=== PATIENT | female | born 1965 | race Hispanic/Latino ===

== ENCOUNTER → 2022-03-31 10:13 | Outpatient (CLI) | payer OTHER, SELFPAY ==
[2022-03-31 11:44] LABS: COVID19 -Nasal RAPID Negative (Negative)
== END ==
PROVIDERS: PCP Preventive Medicine Occupational Medicine; Referring Provider Orthopaedic Surgery Orthopaedic Surgery of the Spine; Visit Provider Orthopaedic Surgery Orthopaedic Surgery of the Spine
DX: Z20.822 Contact with and (suspected) exposure to COVID-19 (principal)
CPT/HCPCS: 87635; C9803

== ENCOUNTER 2022-04-03 10:11 | Inpatient (IN) | payer OTHER, SELFPAY ==
[2022-03-28 07:39] VITALS: BMI 20.7
[2022-04-03] VITALS (14 sets, daily range): BP systolic 113–144; BP diastolic 60–78; PULSE 74–106; RESP 13–18; TEMP 36.2–37.1; O2SAT 95–100; BMI 20.7
[2022-04-03] MEDS: LACTATED RINGERS 1,000 ML 42 ML IV (11:18)
[2022-04-03] MEDS: ACETAMINOPHEN IV 1,000 MG/100 ML VIAL 400 MG IV (11:34)
--- NOTE | 2022-04-03 11:56 | PM.PREOP ---
Pre-operative Note COVID-19 COVID-19 status: Negative Result date/Date tested (Pos, Neg/Pending): 04/02/22 Criteria for continued procedure: Expected advancement of disease process, Possibility delay results in more complex future surgery or treatment, Increased loss of function, Continuing or worsening of significant or severe pain, Deterioration of the patient's condition or overall health and Delay expected to result in less-positive ultimate med/surg outcome Interval Note History & Physical reviewed/Exam performed by Physician: Yes Changes to H&P: No
[2022-04-03] MEDS: GABAPENTIN 300 MG CAPSULE PO (12:21)
--- NOTE | 2022-04-03 12:24 | SUR.PREOP ---
Order for Gabapentin from Dr Love as pt did not take her morning dose.
[2022-04-03] MEDS: CLINDAMYCIN 600 MG/50 ML PIGGYBACK 50 MG IV ×2 (12:42→20:48)
--- NOTE | 2022-04-03 13:21 | SUR.OPER ---
Supine, head on gel donut. Arms padded with gel pads, tucked at sides, towel roll under shoulders. Safety belt at thigh. Legs uncrossed. Pillow under knees, gel pad under heels.
[2022-04-03] MEDS: BUPIVACAINE 0.25% (PF) VIAL 10 ML INJ (13:30)
--- NOTE | 2022-04-03 15:14 | DI.RAD.S_ITS ---
PROCEDURE: XR CERVICAL SPINE 2V OR 3V INDICATIONS: C4-5, C5-6,C6-7 ACDF TECHNIQUE: Low resolution intraoperative fluoroscopic spot films were obtained COMPARISON: None. FINDINGS: Low resolution spot films show C4-5, C5-6 and C6-7 discectomy with disc spacers and anterior plate and screw hardware in good position IMPRESSION: Fluoroscopic guidance Approved by: Mirza Dubois M.D. on 04/03/2022 at 14:52
--- NOTE | 2022-04-03 15:22 | PM.OP.1 ---
Operative Date/Time/Diagnoses Date of procedure: 04/03/22 Time of procedure: 13:00 Pre-op diagnosis: 1. C4-5, C5-6, C6-7 spinal stenosis 2. C4-5, C5-6, C6-7 spondylosis with radiculopathy Post-op diagnosis: same Procedure & Clinicians Procedure: 1. C4-5 C5-6 C6-7 anterior cervical diskectomy and fusion 2. C4-5 C5-6 C6-7 anterior interbody cage placement 3. C4-5 C5-6 C6-7 anterior instrumentation with plate and screw placement in C4-C5-C6 and C7 vertebrae 4. Utilization of microsurgical technique and operating microscope Same procedure as scheduled: Yes Indications: Patient has been having chronic neck pain and worsening cervical radiculopathy with arm pain, weakness and numbness. Patient failed multiple conservative management with worsening pain weakness and numbness in her upper extremity. Patient has been having difficulty performing activity of daily living. After discussing risks benefits of treatment options, patient elected proceed with surgery. Surgeon: Juwan Bryson Advertising Executive: Dano Panda Click Yes if Unassisted: No Anesthesia Type: General Operative Notes Closure Type: primary Specimen(s): none sent Prosthetic devices, grafts, tissues, transplants, or devices: Globus Extend Plate, Titanium cages Applied: catheter Estimated Blood Loss (mL): 5 Blood products transfused: none Procedure in detail: Patient was seen in the preoperative area. Risks and benefits of the surgery was discussed with the patient. Operative consent was obtained and placed in the chart. Patient was then taken to the operative room. Prophylactic antibiotic was given less than 0.5 hr prior to skin incision. General anesthesia was administered. Patient was placed into a supine position on her radiolucent table. Bilateral shoulders were taped down to allow proper C-arm imaging. Anterior cervical area was prepped and draped in a sterile fashion. Time-out was performed at this time. Using lateral C-arm imaging, the level between C4 and C7 was identified and marked on patient's neck. A oblique incision from midline towards medial border of sternocleidomastoid muscle was made. The platysma muscle was incised in line with skin incision. Metzenbaum scissor was used to develop the plane between the medial border of sternocleidomastoid and the strap muscles medially. The carotid sheath and its contents were identified and protected behind the hand-held retractor during the entire case. The plane between the carotid sheath and strap muscles was developed with Metzenbaum scissors. Dissection was made down to the level of the anterior cervical fascia. Longus colli muscle was incised on the anterior aspect of vertebral bodies bilaterally from C4-C7. Spinal needle was placed into the C4-5 disc space and confirmed with lateral C-arm imaging. Self-retaining retractors were then placed protecting the carotid sheath the sheath laterally and the esophagus medially while exposing the surgical field between C4-C7 vertebrae. Using microsurgical technique and operative microscope, anterior cervical diskectomy was performed at C4-5 C5-6 and C6-7 level. This was done by removing the disc material, removing the anterior and posterior osteophytes posterior longitudinal ligaments along with performing bilateral foraminotomies at all 3 levels. Patient was found to have severe central and foraminal stenosis at all 3 levels. Patient's stenosis was fully decompressed after decompression was completed. After the diskectomy was completed, 3 anterior interbody cages were obtained. The cages were packed with globus DBM grafting material. One cage each along with the bone grafting material was then packed into the interbody spaces from C4-C7 with one cage into each interbody level. After the cages were placed, the anterior cervical plate was stabilized to the C4-C7 vertebrae using 2 screws at each each level. Total 8 screws were placed. After confirming placement of the hardware with AP and lateral C-arm imaging, the screws were locked into the plate using the locking mechanism and torque limiting screwdriver. After the hardware was placed and confirmed with AP and lateral C-arm imaging, the wound was irrigated with sterile normal saline. Hemostasis was accomplished using bipolar cautery. Carotid sheath contents and the esophagus was inspected and visualized and identified to be well protected throughout the entire case prior to closure. Platysma muscle and the subcutaneous tissue was closed with 2-0 Vicryl. The skin was closed with 4-0 Monocryl and Steri-Strips. Patient tolerated the procedure well. Patient was transferred recovery room in stable condition. There were no complications. Complications: none Post-operative Condition: stable Disposition: PACU Plan for aftercare: Admit to inpatient hospital
[2022-04-03] MEDS: hydrOXYzine 50 MG/ML INJ IM (15:52)
[2022-04-03] MEDS: LORazepam 2 MG/ML INJ (16:05)
[2022-04-03] MEDS: SODIUM CHLORIDE 0.9% 1,000 ML 100 ML IV (16:59)
[2022-04-03] MEDS: OXYCODONE IR 5 MG TABLET PO (21:58)
[2022-04-04] VITALS (7 sets, daily range): BP systolic 107–153; BP diastolic 58–82; PULSE 68–78; RESP 17–20; TEMP 36.2–36.6; O2SAT 96–100
[2022-04-04] MEDS: OXYCODONE IR 5 MG TABLET PO ×6 (02:15→22:34)
[2022-04-04] MEDS: SODIUM CHLORIDE 0.9% 1,000 ML 100 ML IV (02:19)
[2022-04-04] MEDS: ACETAMINOPHEN 325 MG TABLET 650 MG PO ×3 (04:45→22:34)
[2022-04-04] MEDS: CLINDAMYCIN 600 MG/50 ML PIGGYBACK 50 MG IV (05:02)
[2022-04-04] MEDS: DOCUSATE 100 MG CAPSULE PO ×2 (08:45→20:27)
[2022-04-04] MEDS: hydrOXYzine pamoate 25 MG CAPSULE PO ×2 (08:45→20:27)
[2022-04-04] MEDS: MAGNESIUM HYDROXIDE 30 ML UDC PO (08:45)
--- NOTE | 2022-04-04 09:00 | PM.PNPO.1 ---
Subjective Subjective Date Patient Seen: 04/04/22 Time Patient Seen: 09:00 Interval history: -the patient is complaining of moderate neck pain with difficulty swallowing. She is also complaining of left sided body decreased sensation and weakness. This was present prior to surgery. She had difficulty standing yesterday due to her left foot numbness and weakness. She has not worked with physical therapy or occupational therapy yet. Exam Vital Signs (past 8 hours): - 04/04/22 02:24 04/04/22 05:04 04/04/22 08:00 Temperature 97.4 F L 97.2 F L 97.2 F L Pulse Rate 68 68 77 Respiratory Rate 18 18 17 Blood Pressure 107/58 L 123/69 140/81 Pulse Oximetry 96 99 99 Oxygen Flow Rate 2 0 Oxygen Delivery Method Room Air Oxygen Flow Rate 0 Narrative Exam Narrative: -pleasant 56-year-old female, resting comfortably in her chair, no acute distress. Dressing is clean, dry, intact. Soft cervical neck brace is in place. 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 She has decreased sensation in left pinky, pointer, thumb fingers as compared to the right. Bilateral lower extremity: Strength is 3 +out of 5 with ankle plantar flex in, dorsiflexion, EHL as compared to the right. She has decreased sensation on medial and lateral ankle on the left as compared to the right. [facility] Medical History ADHD, hyperactive-impulsive type Anxiety Borderline diabetic Burning sensation Cirrhosis Concussion (~02/2022) Heart murmur Hepatitis C (~2007) Insomnia Kidney stones Myocardial infarction Spinal stenosis of cervical region Surgical History History of section History of elective History of surgery on lower extremity Hx of knee surgery Hx of left inguinal hernia repair Hx of lithotripsy Social History household members: family Smoking Status: Current every day smoker alcohol intake: current Assessment & Plan Post-op Postoperative Procedures: Procedures Operation Date: 04/03/22 12:45 Actual Procedure Side Surgeon p C4-5, C5-6, C6-7 ACDF w. anterior instrumentation Juwan Bryson MD Postoperative day: 1 Postoperative status narrative: -stable status post C4-5, C5-6, C6-7 ACDF -generalized left-sided body weakness and decreased sensation, present prior to surgery Postoperative plan narrative: -mobilize with PT/OT. Limit bending, lifting, twisting x6 weeks. Weightbearing as tolerated with front wheel walker. -may need to consider a left foot AFO if she is having difficulty walking, due to her generalized left-sided weakness -continue with multimodal pain management. We will hold Neurontin until after her morning physical therapy session due to the drowsiness it causes. -DC urinary catheter today -disposition: Likely home tomorrow Quality VTE Deep Vein Thrombosis/Pulmonary Embolism Present on Admission: No
--- NOTE | 2022-04-04 10:20 | PT.IIE ---
Current Diagnoses Other spondylosis with radiculopathy, cervical region (04/03/22) Spinal stenosis, cervical region (04/03/22) Surgery Performed Operation Date: 04/03/22 12:45 Actual Procedures p C4-5, C5-6, C6-7 ACDF w. anterior instrumentation - Juwan Bryson MD Surgical History (Last Reviewed 04/04/22 @ 09:03 by Wendy Knott PA-C) History of section History of elective History of surgery on lower extremity Hx of knee surgery Hx of left inguinal hernia repair Hx of lithotripsy Medical History (Last Reviewed 04/04/22 @ 09:03 by Wendy Knott PA-C) ADHD, hyperactive-impulsive type Anxiety Borderline diabetic Burning sensation Cirrhosis Concussion (~02/2022) Heart murmur Hepatitis C (~2007) Insomnia Kidney stones Myocardial infarction Spinal stenosis of cervical region Physical Therapy Inpatient Evaluation/Re-Eval M1 PT/OT-IP Prior Functional Status Start: 04/04/22 13:04 Freq: NEEDED Status: Active Protocol: Document 04/04/22 10:20 AB (Rec: 04/04/22 13:25 AB [email or web address]) Medical Review Prior Functional Status Medical History Reviewed Yes Communication able to make needs known Mobility and Gait pt stated that she is modified independent with all mobilities and ambulation using SPC Social History Household Members family Living Arrangements RV Number of Floors (Floors) One Floor Number of Stairs To Enter/Railing? pt plans to go to her sister's house upon d/c and sister will assist pt: home set up below pertains to sister's house 3 steps wide rails to enter Home Environment Standard Height Toilet,Tub/ Shower Home Equipment Straight Cane,Hand Held Shower Additional Social History Comment pt plans to stay at her sister 's house for ~ 10 days and go home where her son will help her as need. Son works aging department supervisor 11am to 5 pm M2 PT-IP Current Condition Start: 04/04/22 13:04 Freq: NEEDED Status: Active Protocol: Document 04/04/22 10:20 AB (Rec: 04/04/22 13:25 AB [email or web address]) Physical Therapy Current Condition Current Condition Evaluation Date 04/04/22 Treatment Diagnosis s/p C4-5, C5-6, C5-6 ACDF; difficulty in walking Onset Date 04/03/22 M3 PT-IP Subjective Start: 04/04/22 13:04 Freq: NEEDED Status: Active Protocol: Document 04/04/22 10:20 AB (Rec: 04/04/22 13:25 [email or web address]) Subjective Physical Therapy Visit Type Type Initial Evaluation Visit Start Time 10:20 Visit Stop Time 10:50 Total Visit Minutes 30 Number of DIRECTOR GEOPH[employer]ORATORY Visits 0 Physical Therapy Visit Comments Patient Comments agreeable to do PT Therapy Pain Assessment Pain When Pain Assessed At Rest Pain Present Pain Present Pain Reported Location Neck Intensity 4 Scale Used Numeric (0 - 10) Pain Management Techniques Distraction,Modification of Treatment,Re-positioning, Timing of Activity with Medications M4 PT-IP Mobility and Gait Start: 04/04/22 13:04 Freq: NEEDED Status: Active Protocol: Document 04/04/22 10:20 AB (Rec: 04/04/22 13:25 [email or web address]) PT-Bed Mobility Assessment Rolling Type of Rolling Log Rolling Level of Assist Minimal Assistance Supine to Sit Supine to Sit Minimal Assistance,Moderate Assistance Sit to Supine Sit to Supine Minimal Assistance PT-Transfer Assessment Sit to and From Stand Sit to and from Stand Moderate Assistance,Maximum Assistance,1 Person Assistance ,Use of Upper Extremities Equipment Transfer Assistive Device Gait Belt,Front Wheeled Walker Orthotic/Prosthetic Devices or Brace: Yes Transfers Transfer Destination Bed,Chair Transfer Technique Stand Step Pivot Transfer Ability Level of Assist Maximum Assistance,1 Person Assistance,Use of Upper Extremities Comments Mobility Comments pt sitting on chair. educated on cervical precautions, log roll and soft collar management. completed sit to stand mod to max A and cues. transferred to bed using FWW max A and max cues. able to ambulate ~ 2 ft to get to the bed. (+) L knee buckling and required max A for stability and cued for quads activation. completed log rolls sit to supine min A and max cues; supine to sit min to mod A and max cues. completed sit to stand mod A to max A and step transfer to chair max A using FWW. positioned pt on the chair. call light and table placed within reach. Gait Assessment Gait Gait Assistance Required: Maximum Assistance Distance (Feet) 2 Assistive Devices Assistive Device Gait Belt,Front Wheeled Walker Orthotic/Prosthetic Devices or Brace: No Gait Deviations General Gait Pattern Decreased Stride Length, Decreased Feet Clearance,Step- to Gait Factors Limiting Gait Function Factors Limiting Gait Function Decreased Activity Tolerance, Decreased Strength,Limited Range of Motion,Pain,Poor Balance,Poor Safety Awareness PT-Balance Assessment Sitting Balance and Reactions Static Sitting Balance Ability Good Dynamic Sitting Balance Ability Good Standing Balance and Reactions Static Standing Balance Ability Poor Dynamic Standing Balance Ability Poor Device Used FWW M5 PT-IP Objective Assessments Start: 04/04/22 13:04 Freq: NEEDED Status: Active Protocol: Document 04/04/22 10:20 AB (Rec: 04/04/22 13:25 AB [email or web address]) Orientation Orientation/Cognition Level of Alertness Alert Orientation Name,Place,Situation Language Function Ability No Deficits Noted Safety Awareness Decreased Safety Awareness Memory Description No Deficits Noted Gross Range of Motion Lower Extremity ROM Assessment Within Functional Limits Strength Lower Extremity Strength Assessment Left Impaired Hip 3+/5 Knee 3+/5 Ankle 2-/5 Sensation Assessment Sensation Gross Sensation Left UE Impaired,Left LE Impaired Sensation Description Numbness Comments Sensation Comments pt stated that she can only feel ~ 30 % on L side Muscle Tone Muscle Tone WNL Yes M6 PT-IP Treatment Start: 04/04/22 13:04 Freq: NEEDED Status: Active Protocol: Document 04/04/22 10:20 AB (Rec: 04/04/22 13:25 AB [email or web address]) Physical Therapy Treatment Education Education Provided Precautions,Weight Bearing Status,Post-Op Packet,Safety M7 PT-IP Assessment and Plan Start: 04/04/22 13:04 Freq: NEEDED Status: Active Protocol: Document 04/04/22 10:20 AB (Rec: 04/04/22 13:[facility] PT Summary Assessment and Plan Potential Rehabilitation Potential Fair Status of Condition at Evaluation Evolving Summary Impairments Pain,ROM,Strength,Balance, Coordination,Sensation,Tone, Cognition,Bed Mobility, Transfers,Gait,Activity Tolerance Assessment Summary pt requiring mod to max A with mobility using FWW. Presents with L knee buckling with transfers using FWW. d/c plan depending on progress but at this time, pt will require SNF rehab. Goals Bed Mobility Goal Standby Assistance Transfer Goal Minimal Assistance,Front Wheeled Walker Gait Goal Minimal Assistance,Front Wheel Walker Gait Distance 50 Other Goals improve bed mobility, transfers, ambulation ~ 150 ft using FWW mod I up/down 3 steps 1 rail SBA Days to Meet Goals 10 Frequency of Treatment Frequency Of Treatment Twice a Day Treatment Plan Physical Therapy Treatment Plan Bed Mobility Training,Transfer Training,Gait Training, Therapeutic Exercise,Balance Retraining,Post Op Education, Discharge Planning,Hot or Cold Pack,Neuromuscular Re-ed, Coordination Retraining,Manual Therapy Precautions Cervical Spine Precautions Soft Collar for Comfort,No Heavy Lifting,Log Roll Recommendations To Nursing Amount of Assist Needed 1 Person Assist Discharge Recommendations PT Discharge Recommendations SNF Rehab Equipment Needed for Home Before FWW Discharge Transportation Needs at Discharge Private Vehicle,Wheelchair/ Cabulance
[2022-04-04] MEDS: GABAPENTIN 300 MG CAPSULE PO ×3 (10:55→20:28)
[2022-04-04 12:59] LABS: Hematocrit 35.9 % (36-46); Hemoglobin 12.3 g/dL (12.0-16.0)
--- NOTE | 2022-04-04 13:48 | PT.IPTN ---
Current Diagnoses Other spondylosis with radiculopathy, cervical region (04/03/22) Spinal stenosis, cervical region (04/03/22) Surgery Performed Operation Date: 04/03/22 12:45 Actual Procedures p C4-5, C5-6, C6-7 ACDF w. anterior instrumentation - Juwan Bryson MD Physical Therapy Treatment Note M2 PT-IP Current Condition Start: 04/04/22 13:04 Freq: NEEDED Status: Active Protocol: Document 04/04/22 10:20 AB (Rec: 04/04/22 13:25 AB [email or web address]) Physical Therapy Current Condition Current Condition Evaluation Date 04/04/22 Treatment Diagnosis s/p C4-5, C5-6, C5-6 ACDF; difficulty in walking Onset Date 04/03/22 M3 PT-IP Subjective Start: 04/04/22 13:04 Freq: NEEDED Status: Active Protocol: Document 04/04/22 13:28 KS (Rec: 04/04/22 14:49 KS [id number]) Subjective Physical Therapy Visit Type Type Treatment Note Visit Start Time 13:28 Visit Stop Time 13:48 Total Visit Minutes 20 Notes daughter present Number of CERTIFIED PHLEBOTOMIST Visits 1 Physical Therapy Visit Comments Patient Comments agreeable to do PT M4 PT-IP Mobility and Gait Start: 04/04/22 13:04 Freq: NEEDED Status: Active Protocol: Document 04/04/22 13:28 KS (Rec: 04/04/22 14:49 KS [id number]) PT-Bed Mobility Assessment Rolling Type of Rolling Log Rolling Level of Assist Contact Guard Assistance Supine to Sit Supine to Sit Contact Guard Assistance,1 Person Assistance Sit to Supine Sit to Supine Contact Guard Assistance PT-Transfer Assessment Sit to and From Stand Sit to and from Stand Minimal Assistance,1 Person Assistance,Use of Upper Extremities Equipment Transfer Assistive Device Gait Belt,Front Wheeled Walker Orthotic/Prosthetic Devices or Brace: Yes Transfers Transfer Destination Bed Transfer Technique Pt ambulated Transfer Ability Level of Assist Minimal Assistance,1 Person Assistance,Use of Upper Extremities Comments Mobility Comments Pt in bed upon arrival and reported some relief but also fatigue following oxy. CGA for logroll and sidelying<>sit, Min A and cues for sit<>stand w/ FWW. Pt continues to have LLE weakness w/ some buckling requiring cues for quad activation. Pt ambulated ~5 ft forward and back w/ FWW and c /o weakness in LE. She returned to bed CGA. Daughter arrived, discussed at home assistance and safety as well as DME and SNF. Gait Assessment Gait Gait Assistance Required: Minimum Assistance,1 Person Assist Distance (Feet) 10 Assistive Devices Assistive Device Gait Belt,Front Wheeled Walker Orthotic/Prosthetic Devices or Brace: No Gait Deviations General Gait Pattern Decreased Stride Length, Decreased Feet Clearance Factors Limiting Gait Function Factors Limiting Gait Function Decreased Activity Tolerance, Decreased Strength,Limited Range of Motion,Pain,Poor Balance,Poor Safety Awareness Comments Gait Comments Pt only able to tolerate 5 ft forward and back w/ FWW Min A due to weakness and LLE buckling. Stair Climbing Assessment Comments Stair Climbing Comments Did not assess, pt will need to complete 3 stairs prior to d/c if going home. PT-Balance Assessment Sitting Balance and Reactions Static Sitting Balance Ability Good Dynamic Sitting Balance Ability Good Standing Balance and Reactions Static Standing Balance Ability Fair Dynamic Standing Balance Ability Poor Device Used FWW M5 PT-IP Objective Assessments Start: 04/04/22 13:04 Freq: NEEDED Status: Active Protocol: Document 04/04/22 10:20 AB (Rec: 04/04/22 13:25 AB [id number]) Orientation Orientation/Cognition Level of Alertness Alert Orientation Name,Place,Situation Language Function Ability No Deficits Noted Safety Awareness Decreased Safety Awareness Memory Description No Deficits Noted Gross Range of Motion Lower Extremity ROM Assessment Within Functional Limits Strength Lower Extremity Strength Assessment Left Impaired Hip 3+/5 Knee 3+/5 Ankle 2-/5 Sensation Assessment Sensation Gross Sensation Left UE Impaired,Left LE Impaired Sensation Description Numbness Comments Sensation Comments pt stated that she can only feel ~ 30 % on L side Muscle Tone Muscle Tone WNL Yes M6 PT-IP Treatment Start: 04/04/22 13:04 Freq: NEEDED Status: Active Protocol: Document 04/04/22 13:28 KS (Rec: 04/04/22 14:49 KS [id number]) Physical Therapy Treatment Exercises Exercises Ankle Pumps Education Education Provided Precautions,Weight Bearing Status,Post-Op Packet,Safety M7 PT-IP Assessment and Plan Start: 04/04/22 13:04 Freq: NEEDED Status: Active Protocol: Document 04/04/22 13:28 KS (Rec: 04/04/22 14:49 KS [id number]) PT Summary Assessment and Plan Potential Rehabilitation Potential Fair Summary Impairments Pain,ROM,Strength,Balance, Coordination,Sensation,Tone, Cognition,Bed Mobility, Transfers,Gait,Activity Tolerance Progress Towards Goals Slow Progress due to Pain,Slow Progress due to Activity Tolerance Assessment Summary Pt showed improved bed mobility and sit<>Stand, requiring CGA to Min A, however continues to have LLE buckling and weakness and could only tolerate 10 ft ambulation w/ FWW. Scheduled caregiver training w/ pts daughter for 04/05 at 10:30. Pt will need to improve ambulation, balance, and complete stair training prior to d/c if going home. Goals Bed Mobility Goal Standby Assistance Transfer Goal Minimal Assistance,Front Wheeled Walker Gait Goal Minimal Assistance,Front Wheel Walker Gait Distance 50 Other Goals improve bed mobility, transfers, ambulation ~ 150 ft using FWW mod I up/down 3 steps 1 rail SBA Days to Meet Goals 10 Frequency of Treatment Frequency Of Treatment Twice a Day Treatment Plan Physical Therapy Treatment Plan Bed Mobility Training,Transfer Training,Gait Training, Therapeutic Exercise,Balance Retraining,Post Op Education, Discharge Planning,Hot or Cold Pack,Neuromuscular Re-ed, Coordination Retraining,Manual Therapy Precautions Cervical Spine Precautions Soft Collar for Comfort,No Heavy Lifting,Log Roll Recommendations To Nursing Amount of Assist Needed 1 Person Assist Discharge Recommendations PT Discharge Recommendations Home with 29/01 Assist Available,Home Health,SNF Rehab Equipment Needed for Home Before FWW Discharge Transportation Needs at Discharge Private Vehicle,Wheelchair/ Cabulance
--- NOTE | 2022-04-04 14:41 | CM.DANOTE ---
Initial DCP Assessment Note Pt is a 56 yo female, resident of [place], now POD#[address] fusion [address] Dr Bryson PCP: Aramis Donaldson Payer: L+I Reviewed chart, pt discussed in multidisciplinary rounds this morning. Therapy currently recommending SNF based on initial PT eval d/t patient's legs buckling with movement Patient hopeful to return home w/her sister to [place], dtr mark can transport but will not be able to care for patient, sister available at least for the first week of recovery Met w/patient to introduce self and role, patient waiting for PT at time of this visit Needs f/u. Expect patient will DC back home w/family and HH, as patient has L+I coverage. If patient does not improve functionally, CM team will need to be in close contact w/patient's L+I embedded case manager ADINA Perez Discharge Planning/Care Management Advanced directive, confirm from FAMILY Start: 04/03/22 16:57 Freq: Q24H Status: Active Protocol: Document 04/03/22 16:57 (Rec: 04/03/22 22:17 [id number]) Advance Directive, confirm on record Time 22:16 Person contacted patient Copy received No CM Discharge Assessment Start: 04/04/22 14:39 Freq: Status: Active Protocol: Document 04/04/22 14:39 LAINE (Rec: 04/04/22 14:41 [id number]) Discharge Planning Assessment Assigned Nurse Executive ADINA Donis DPOA/Assigned Designee Name Mercedes Oliveira (daughter) Yesenia (sister) Contact Information [phone] Advance Directives? Yes Advance Directives on File No History Provided By Patient,Family Member,Medical Record Prior Living Arrangements RV Household Members family Type of transporation used prior to Relies on Others admit Independent with ADL's Yes Is patient alert and oriented? Yes Patient/Family Preference Nursing Home Facility,Home with Home Health Barriers to Discharge Yes Comment PT currently rec SNF based on initial PT eval; patient hopeful to return home. Patient has L+I coverage so need to discuss plan with patient and w/ L+I CM to discuss DC options and benefits Discharge Plan Home with Home Health Transportation Arrangement Family if return home vs cabulance if SNF Additional Comment Needs f/u
[2022-04-04] MEDS: SENNOSIDES 8.6 MG TABLET 17.2 MG PO (20:27)
[2022-04-05 03:00] VITALS: BP 133/79; PULSE 72; RESP 20; TEMP 36.2; O2SAT 98
[2022-04-05] MEDS: OXYCODONE IR 5 MG TABLET PO ×3 (05:33→11:21)
[2022-04-05] MEDS: hydrOXYzine pamoate 25 MG CAPSULE PO ×2 (05:33→09:47)
--- NOTE | 2022-04-05 07:23 | PM.DS.1 ---
History of Present Illness History of Present Illness Date Patient Seen: 04/05/22 Time Patient Seen: 07:23 Chief complaint: Moderate neck pain Narrative: Patient states her neck pain is moderate. Denies fever or chills. No nausea or vomiting. She states she has no shortness of breath or chest pain. Discharge Providers Provider Date of admission: 04/03/22 10:11 Discharge Date: 04/05/22 Primary care physician: Aramis Donaldson MD Consults: 04/03/22 16:38 Consult to Occupational Therapy Evaluate & Treat Comment: Physician Instructions: Evaluate and treat Consult to Physical Therapy Evaluate & Treat Comment: Physician Instructions: Evaluate and Treat Discharge provider: Dano Panda PA-C Summary Hospital Course Discharge Diagnosis: 1. C4-5, C5-6, C6-7 spinal stenosis 2. C4-5, C5-6, C6-7 spondylosis with radiculopathy Hospital Course: 1.? C4-5 C5-6 C6-7 anterior cervical diskectomy and fusion 2.? C4-5 C5-6 C6-7 anterior interbody cage placement 3.? C4-5 C5-6 C6-7 anterior instrumentation with plate and screw placement in C4-C5-C6 and C7 vertebrae 4.? Utilization of microsurgical technique and operating microscope Same procedure as scheduled: Yes Indications: Patient has been having chronic neck pain and worsening cervical radiculopathy with arm pain, weakness and numbness. Patient failed multiple conservative management with worsening pain weakness and numbness in her upper extremity.? Patient has been having difficulty performing activity of daily living.? After discussing risks benefits of treatment options, patient elected proceed with surgery. Surgeon: Juwan Bryson Split Leather Department Supervisor: Dnao Panda Click Yes if Unassisted: No Anesthesia Type: General Operative Notes Closure Type: primary Specimen(s): none sent Prosthetic devices, grafts, tissues, transplants, or devices: Globus Extend Plate, Titanium cages Applied: catheter Estimated Blood Loss (mL): 5 Blood products transfused: none Patient admitted to the hospital for the above-mentioned procedure. Patient consented to the same. Patient underwent cervical fusion on April 03, 2022. Patient has been progressing as expected and will be discharged home today in stable condition. Multimodal pain management, limit bending, lifting, twisting. Soft collar for comfort. Status at Discharge Cognitive/behavioral status at discharge: at baseline, oriented Functional status at discharge: uses cane/walker Overall status at discharge: patient is progressing back to baseline Exam Vital Signs (past 8 hours): - 04/05/22 03:00 Temperature 97.2 F L Pulse Rate 72 Respiratory Rate 20 Blood Pressure 133/79 Pulse Oximetry 98 Oxygen Flow Rate 0 Oxygen Delivery Method Room Air Oxygen Flow Rate 0 Narrative Exam Narrative: 56-year-old female resting comfortably in bed in no apparent distress. Dressing is clean, dry and intact. Motor functions intact bilateral upper extremities. Const General: cooperative and comfortable Nutritional Appearance: average body habitus Resp Effort & Inspection: normal respiratory effort and able to speak in complete sentences Objective Labs Result Diagrams: 04/04/22 12:50 Labs: Laboratory Results - last 24 hr 04/04/22 12:50 Hgb 12.3 Hct 35.9 L PFSH Medical History ADHD, hyperactive-impulsive type Anxiety Borderline diabetic Burning sensation Cirrhosis Concussion (~02/2022) Heart murmur Hepatitis C (~2007) Insomnia Kidney stones Myocardial infarction Spinal stenosis of cervical region Surgical History History of section History of elective History of surgery on lower extremity Hx of knee surgery Hx of left inguinal hernia repair Hx of lithotripsy Social History household members: family Smoking Status: Current every day smoker alcohol intake: current Discharge Assessment & Plan Assessment and Plan Assessment: Patient progressing as expected status post C4-C5, C5-C6, C6-C7 anterior cervical diskectomy and fusion Plan of Treatment: Multimodal pain management Limit bending, twisting, lifting Soft collar for comfort Follow-up in 2 weeks with [facility] Discharge home today after physical therapy. Discharge Plan Discharge Plan Patient Disposition: Home Provider Discharge Comment: Discharge home today after physical therapy Discharge orders & Medications Prescriptions: New acetaminophen 325 mg Tablet 650 mg PO Q6HR PRN (Reason: Pain, Mild (1-3)) Qty: 60 0RF docusate sodium 100 mg Capsule 100 mg PO BID Qty: 20 0RF oxycodone 5 mg Tablet 5 mg PO Q3HR PRN (Reason: Pain, Moderate (4-6)) Qty: 60 0RF hydroxyzine pamoate 25 mg Capsule 25 mg PO Q4HR PRN (Reason: Nausea And Vomiting) Qty: 40 0RF Continued gabapentin 300 mg Capsule 300 mg PO TID Follow up/Referrals: Juwan Bryson MD [Physician] - (Two weeks) Aramis Donaldson MD [Primary Care Provider] - Diet/Activity/Treatments Diet: Diet as Tolerated Activity: Limit bending, twisting, lifting Other treatments: Soft collar for comfort Skin/Wound/Dressing Care Dressing: Keep dressing clean and dry Visit Report/Discharge Packet Instructions: DI for Prescription Opioid Use, DI for Anterior Cervical Discectomy and Fusion Stand Alone Forms: Surgery Discharge Discharge Data Primary Care Provider: Aramis Donaldson Quality VTE Deep Vein Thrombosis/Pulmonary Embolism Present on Admission: No
[2022-04-05] MEDS: DOCUSATE 100 MG CAPSULE PO (08:37)
[2022-04-05] MEDS: GABAPENTIN 300 MG CAPSULE PO (08:37)
[2022-04-05] MEDS: HYDROMORPHONE 0.5 MG INJ IV (08:44)
--- NOTE | 2022-04-05 09:48 | OT.IP.EVAL ---
Current Diagnoses Other spondylosis with radiculopathy, cervical region (04/03/22) Spinal stenosis, cervical region (04/03/22) Surgery Performed Operation Date: 04/03/22 12:45 Actual Procedures p C4-5, C5-6, C6-7 ACDF w. anterior instrumentation - Juwan Bryson MD Past Medical History (Last Reviewed 04/05/22 @ 07:25 by Dano Panda PA-C) ADHD, hyperactive-impulsive type Anxiety Borderline diabetic Burning sensation Cirrhosis Concussion (~02/2022) Heart murmur Hepatitis C (~2007) Insomnia Kidney stones Myocardial infarction Spinal stenosis of cervical region Surgical History (Last Reviewed 04/05/22 @ 07:25 by Dano Panda PA-C) History of section History of elective History of surgery on lower extremity Hx of knee surgery Hx of left inguinal hernia repair Hx of lithotripsy Occupational Therapy Inpatient Evaluation/Re-Eval M1 PT/OT-IP Prior Functional Status Start: 04/04/22 13:04 Freq: NEEDED Status: Active Protocol: Document 04/05/22 09:03 [facility] (Rec: 04/05/22 09:48 [facility] [id number]) Medical Review Prior Functional Status Medical History Reviewed Yes Communication able to make needs known Mobility and Gait pt stated that she is modified independent with all mobilities and ambulation using SPC Activities of Daily Living and IADL's Pt states was needing assist for IADl needs prior to surgery due to her pain. Social History Household Members family Living Arrangements House Number of Floors (Floors) One Floor Number of Stairs To Enter/Railing? pt plans to go to her sister's house upon d/c and sister will assist pt: home set up below pertains to sister's house 3 steps wide rails to enter Home Environment Standard Height Toilet,Tub/ Shower Home Equipment Front Wheel Walker,Straight Cane,Shower Seat with Backrest ,Hand Held Shower,Grab Bars Near Toilet,Grab Bars In Shower Additional Social History Comment pt plans to stay at her sister 's house for ~ 10 days and go home where her son will help her as need. Son works department of natural resources officer 11am to 5 pm Pt states can possibly use her sister's FWW, but then thinking she will probably need her own. Information given for providers for DME to the pt. M2 OT-IP Current Condition Start: 04/05/22 09:33 Freq: Status: Active Protocol: Document 04/05/22 09:03 [facility] (Rec: 04/05/22 09:48 [facility] [id number]) Occupational Therapy Current Condition Current Condition Evaluation Date 04/05/22 Treatment Diagnosis S/p C4-5, C5-6, C6-7 ACDF Diagnosis Onset Date 04/03/22 Post Operative Precautions Cervical Spine Precautions Soft Collar for Comfort,No Heavy Lifting,Log Roll M3 OT- IP Subjective and Pain Start: 04/05/22 09:33 Freq: Status: Active Protocol: Document 04/05/22 09:03 [facility] (Rec: 04/05/22 09:48 [facility] [id number]) OT- Subjective Occupational Therapy Visit Type Type Initial Evaluation Visit Start Time 09:03 Visit Stop Time 09:32 Total Visit Minutes 29 Occupational Therapy Visit Comments Patient Comments Pt agreed to do OT eval but not wanting to shower and preferring to sponge off instead. Notified pt's nurse of request to have something for constipation. Patient/Caregiver Goals To go home. OT Pain Assessment Pain When Pain Assessed At Rest Pain Present Pain Present Pain Reported Location Neck Intensity 8 M4 OT- IP ADL's Start: 04/05/22 09:33 Freq: Status: Active Protocol: Document 04/05/22 09:03 [facility] (Rec: 04/05/22 09:48 [facility] [id number]) OT [id number] Comments OT Self-Feeding Comments Per pt's report having no issues beside the large pills. Educated of eating/swallowing suggestions after ACDF- have pills with applesauce/pudding, eat upright , have softer foods, etc... OT ADL-Grooming General Evaluation Grooming Ability Standby Assistance Areas Needing Assistance Retrieving/Set-up of Grooming Items OT ADL-Oral Care General Eval Oral Care Ability Independent OT ADL-Dressing General Eval Upper Body Dressing Ability Independent Lower Body Dressing Ability Contact Guard Assistance Areas Needing Assistance Underpants/Brief,Socks Comments OT Dressing Comments CGA for balance while pt standing to do brief management needs. OT ADL-Toileting Comments OT Toileting Comments Pt not having to go. Suggested to have assist at home and possibly to wear pads/brief as needed so not having to hurry to the bathroom. OT ADL-Bathing Bathing Type Bathing Type Sponge Bath General Evaluation Bathing Ability Contact Guard Assistance Comments OT Bathing Comments CGA for standing whilw doing pericare needs. M5 OT- IP IADL's Start: 04/05/22 09:33 Freq: Status: Active Protocol: Document 04/05/22 09:03 [facility] (Rec: 04/05/22 09:48 [facility] [id number]) OT-Instrumental Activities of Daily Living Deficits IADL Deficits Identified Deficits Home Safety Awareness Awareness of Need for Assistance at Home Good Awareness Ability to Problem Solve Emergency Able to Problem Solve Situations Medication Management Medication Management Comments Pt's sister to be able to assist as needed. Money Management Money Management Comments Pt's sister to be able to assist as needed. Meal Preparation Meal Preparation Caregiver Provides Assist Director Client Director Client Caregiver Provides Assist Driving Driving Comments Pt aware will not to drive for now. M6 OT- IP Functional Cognition Start: 04/05/22 09:33 Freq: Status: Active Protocol: Document 04/05/22 09:03 [facility] (Rec: 04/05/22 09:48 [facility] [id number]) Cognitive Factors Limiting Selfcare Function Cognitive Ability Level of Alertness Alert Patient Orientation Name,Age,Birthday,Month,Date, Year,Day of Week,Place, Situation Attention Span Ability Capable of Focused Attention, Capable of Sustained Attention Ability to Follow Commands Able to Follow One Step Commands Memory Description No Deficits Noted Safety Awareness Underestimates Need for Assistance Cognitive Comments Cognitive Assessment Comments Pt needing cue to slow down and take her time but able to follow directions for ADl and mobility needs. Pt needing initial safety cue to push up from the armrest from the recliner when coming to stand. OT- Vision and Hearing OT- Hearing Assessment OT- Hearing Assessment WFL OT- Vision Assessment Visual Acuity Glasses For Reading Occular Pursuits WF M7 OT- IP Mobility and Balance Start: 04/05/22 09:33 Freq: Status: Active Protocol: Document 04/05/22 09:03 [facility] (Rec: 04/05/22 09:48 [facility] [id number]) OT-Transfer Assessment Sit to and From Stand Sit to and from Stand Standby Assistance,Contact Guard Assistance Transfers Transfer Ability Standby Assistance Technique Transfer Destination Chair Transfer Technique Stand Step Pivot Devices Transfer Assistive Devices Gait Belt,Front Wheeled Walker Comments Mobility Comments CGA to close SBA to stand OT- Balance Assessment Sitting Balance and Reactions Static Sitting Balance Ability Normal Dynamic Sitting Balance Ability Good Standing Balance and Reactions Static Standing Balance Ability Fair Dynamic Standing Balance Ability Poor Comments Other Balance Tests/Deviations/Treatment Pt LLE tends to buckle and : needing cues to tighten her quads and be mindful of her LLE weakness this time. M8 OT- IP Objective Assessments Start: 04/05/22 09:33 Freq: Status: Active Protocol: Document 04/05/22 09:03 [facility] (Rec: 04/05/22 09:48 [facility] [id number]) OT-Muscle Tone Assessment Muscle Tone WNL Yes M9 OT- IP Assessment and Plan Start: 04/05/22 09:33 Freq: Status: Active Protocol: Document 04/05/22 09:03 [facility] (Rec: 04/05/22 09:48 [facility] [id number]) OT Summary Assessment and Plan Potential Rehabilitation Potential Good Analytic Complexity at Evaluation Low Summary OT Impairments Pain,Strength,Balance, Functional Mobility,Grooming, Dressing,Toileting,Bathing, Toilet Transfers,Shower Transfers,Activity Tolerance Progress Towards Goals Progressing Toward Goals Assessment Summary Pt low complexity and main barriers are pain, LLE buckling when walking, and will need one person assist for ADl and mobility needs at home. Pt's daughter to come later for caregiver training and pt to go home with her sister's when medically stable . Pt would benefit from home health. Goals Grooming Goal Independent Dressing Goal Independent Toileting Goal Independent Bathing Goal Standby Assistance Toilet Transfer Goal Independent Shower Transfer Goal Independent Patient/Caregiver Education Goal Caregiver Independent Assisting Patient Days to Meet Goals 7 Frequency of Treatment Frequency Of Treatment Once a Day Treatment Plan OT Treatment Plan ADL Training,Functional Mobility,Patient/Family Education,Discharge Planning Other Treatment Recommendations and Next shower if still here Treatment Focus Discharge Recommendations OT Discharge Recommendations Home with Assistance Home Equipment Needs FWW Transportation Needs at Discharge Private Vehicle
[2022-04-05] MEDS: ACETAMINOPHEN 325 MG TABLET 650 MG PO (10:48)
--- NOTE | 2022-04-05 10:55 | PT.IPTN ---
Current Diagnoses Other spondylosis with radiculopathy, cervical region (04/03/22) Spinal stenosis, cervical region (04/03/22) Surgery Performed Operation Date: 04/03/22 12:45 Actual Procedures p C4-5, C5-6, C6-7 ACDF w. anterior instrumentation - Juwan Bryson MD Physical Therapy Treatment Note M2 PT-IP Current Condition Start: 04/04/22 13:04 Freq: NEEDED Status: Discharge Protocol: Document 04/04/22 10:20 AB (Rec: 04/04/22 13:25 AB [id number]) Physical Therapy Current Condition Current Condition Evaluation Date 04/04/22 Treatment Diagnosis s/p C4-5, C5-6, C5-6 ACDF; difficulty in walking Onset Date 04/03/22 M3 PT-IP Subjective Start: 04/04/22 13:04 Freq: NEEDED Status: Discharge Protocol: Document 04/05/22 10:30 [place] (Rec: 04/05/22 12:22 [place] [id number]) Subjective Physical Therapy Visit Type Type Treatment Note Visit Start Time 10:30 Visit Stop Time 10:55 Total Visit Minutes 25 Notes daughter present for caregiver training Number of LIBRARY SUPERVISOR Visits 2 Physical Therapy Visit Comments Patient Comments agreeable to do PT Therapy Pain Assessment Pain When Pain Assessed At Rest Pain Present Pain Present Pain Reported Location Neck Description Burning Pain Behaviors Guarding,Restlessness Pain Management Techniques Apply Cold,Distraction,Re- positioning,Timing of Activity with Medications M4 PT-IP Mobility and Gait Start: 04/04/22 13:04 Freq: NEEDED Status: Discharge Protocol: Document 04/05/22 10:30 [place] (Rec: 04/05/22 12:22 [place] [id number]) PT-Transfer Assessment Sit to and From Stand Sit to and from Stand Standby Assistance,1 Person Assistance,Use of Upper Extremities Equipment Transfer Assistive Device Gait Belt,Front Wheeled Walker Orthotic/Prosthetic Devices or Brace: Yes Transfers Transfer Destination Chair,Wheelchair Transfer Technique Pt ambulated w/ FWW Transfer Ability Level of Assist Standby Assistance,1 Person Assistance,Use of Upper Extremities Comments Mobility Comments Pt in chair upon arrival and daughter in room. States she got out of bed unassisted and completed logroll. Demonstrated gait belt application to pts daughter. Pt sit<>stand SBA w/ FWW and ambulated ~60 ft CGA before taking seated rest break in w/ c for remaining distance to practice stairs. Pt continues to have leg weakness and numbness, but no LOB or buckling today. Pts daughter assisted pt w/ ascending/ descending 3 stairs w/ BHR and step over step pattern. W/c back to room due to fatigue. Discussed at home safety, FWW use w/ pt and her daughter who both feel safe to return home . Dispensed FWW for home use. Gait Assessment Gait Gait Assistance Required: Contact Guard Assist,1 Person Assist Distance (Feet) 60 Assistive Devices Assistive Device Gait Belt,Front Wheeled Walker Orthotic/Prosthetic Devices or Brace: No Gait Deviations General Gait Pattern Decreased Stride Length, Decreased Feet Clearance Factors Limiting Gait Function Factors Limiting Gait Function Decreased Activity Tolerance, Decreased Strength,Limited Range of Motion,Pain,Poor Balance,Poor Safety Awareness Comments Gait Comments Pt increased ambulation distance, still somewhat unsteady due to leg weakness and numbness. Daughter able to provide CGA, pt agrees to use FWW at home and confirms sister will be home with her. Stair Climbing Assessment Evaluation Level of Assist On Stairs Contact Guard Assistance,1 Person Assistance Devices Stair Climbing Assistive Devices Left Railing,Right Railing Technique/Endurance Stair Climbing Direction Ascend and Descend Stair Climbing Technique Step Over Step Number of Steps Climbed 3 Stair Climbing Set # Repetitions (reps) 1 Comments Stair Climbing Comments Pt ascended/descended 3 steps w/ BHR step over step w/ daughter providing CGA. Pt fatigued following, but feels she can complete upon return home. Pts daughter confirms she can place a chair inside the door for pt to take seated rest break if needed. PT-Balance Assessment Sitting Balance and Reactions Static Sitting Balance Ability Good Dynamic Sitting Balance Ability Good Standing Balance and Reactions Static Standing Balance Ability Fair Dynamic Standing Balance Ability Fair Device Used FWW M5 PT-IP Objective Assessments Start: 04/04/22 13:04 Freq: NEEDED Status: Discharge Protocol: Document 04/04/22 10:20 AB (Rec: 04/04/22 13:25 AB [id number]) Orientation Orientation/Cognition Level of Alertness Alert Orientation Name,Place,Situation Language Function Ability No Deficits Noted Safety Awareness Decreased Safety Awareness Memory Description No Deficits Noted Gross Range of Motion Lower Extremity ROM Assessment Within Functional Limits Strength Lower Extremity Strength Assessment Left Impaired Hip 3+/5 Knee 3+/5 Ankle 2-/5 Sensation Assessment Sensation Gross Sensation Left UE Impaired,Left LE Impaired Sensation Description Numbness Comments Sensation Comments pt stated that she can only feel ~ 30 % on L side Muscle Tone Muscle Tone WNL Yes M6 PT-IP Treatment Start: 04/04/22 13:04 Freq: NEEDED Status: Discharge Protocol: Document 04/05/22 10:30 [place] (Rec: 04/05/22 12:22 [place] [id number]) Physical Therapy Treatment Exercises Exercises Ankle Pumps Education Education Provided Precautions,Weight Bearing Status,Post-Op Packet,Safety M7 PT-IP Assessment and Plan Start: 04/04/22 13:04 Freq: NEEDED Status: Discharge Protocol: Document 04/05/22 10:30 [place] (Rec: 04/05/22 12:22 [place] [id number]) PT Summary Assessment and Plan Potential Rehabilitation Potential Good Summary Impairments Pain,ROM,Strength,Balance, Coordination,Sensation,Tone, Cognition,Bed Mobility, Transfers,Gait,Activity Tolerance Progress Towards Goals Slow Progress due to Pain,Slow Progress due to Activity Tolerance Assessment Summary Pt SBA to CGA for mobility, CGA for ambulation and stairs today. Completed caregiver training w/ pts daughter who was able to provide all necessary assist. Pt ambulated 60 ft and ascended/descended 3 steps w/ BHR. Pt an daughter feel safe to return home. Pt confirms her sister will be home with her to assist as needed. Pt agrees to use FWW dispensed for safety and energy conservation due to BLE weakness and numbness. Goals Bed Mobility Goal Standby Assistance Transfer Goal Minimal Assistance,Front Wheeled Walker Gait Goal Minimal Assistance,Front Wheel Walker Gait Distance 50 Other Goals improve bed mobility, transfers, ambulation ~ 150 ft using FWW mod I up/down 3 steps 1 rail SBA Days to Meet Goals 10 Frequency of Treatment Frequency Of Treatment Twice a Day Treatment Plan Physical Therapy Treatment Plan Bed Mobility Training,Transfer Training,Gait Training, Therapeutic Exercise,Balance Retraining,Post Op Education, Discharge Planning,Hot or Cold Pack,Neuromuscular Re-ed, Coordination Retraining,Manual Therapy Precautions Cervical Spine Precautions Soft Collar for Comfort,No Heavy Lifting,Log Roll Recommendations To Nursing Amount of Assist Needed 1 Person Assist Discharge Recommendations PT Discharge Recommendations Home with 29/01 Assist Available,Home Health,SNF Rehab Equipment Needed for Home Before FWW Discharge Transportation Needs at Discharge Private Vehicle
[2022-04-05 11:00] VITALS: BP 126/73; PULSE 78; RESP 14; TEMP 36.3; O2SAT 98
--- NOTE | 2022-04-05 11:53 | PC.NURSE ---
Pt is A&OX3. She reports pain increased to neck and requests pain medications this a.m. Dressing to neck c/d/i covered with soft collar. She is able to transfer from bed to chair independently and is SBA with FWW this a.m. She reports pain control is improved with prn pain medications and ice packs. She tolerates breakfast fairly and is able to participate with PT/OT and daughter at bedside for training this a.m. She is cleared for discharge with FWW, which is dispensed to her and arranged with CM. She verbalizes understanding of site care, medications, activity, s/sx of infection as well as the follow up appointment. She is escorted via w/ch to private vehicle with her daughter for discharge home with all of her belongings and dispensed FWW, this a.m. at approximately 1150 a.m.
== END 2022-04-05 11:50 | disposition home health service (06) | DRG 321 ==
PROVIDERS: Physician Assistant; Admitting Provider Orthopaedic Surgery Orthopaedic Surgery of the Spine; PCP Preventive Medicine Occupational Medicine; Referring Provider Preventive Medicine Public Health & General Preventive Medicine; Visit Provider Orthopaedic Surgery Orthopaedic Surgery of the Spine
PROC: 0RG20A0 Fusion of 2 or more Cervical Vertebral Joints with Interbody Fusion Device, Anterior Approach, Anterior Column, Open Approach (ICD-10-PCS; principal; 2022-04-03 12:45)
DX: M48.02 Spinal stenosis, cervical region (principal); M47.22 Other spondylosis with radiculopathy, cervical region; F17.200 Nicotine dependence, unspecified, uncomplicated; Z20.822 Contact with and (suspected) exposure to COVID-19
CPT/HCPCS: 36415; 72040; 76000; 85014; 85018; 97116; 97162; 97165; 97530; 97535; C1713; J0131; J1100; J1170; J2060; J2250; J2405; J3010; J3410; J3490

== ENCOUNTER → 2023-01-15 09:09 | Outpatient (CLI) | payer OTHER, SELFPAY ==
[2022-04-03 10:34] VITALS: BMI 20.7
--- NOTE | 2023-01-15 09:11 | DI.RAD.S_ITS ---
PROCEDURE: XR LUMBAR SPINE MIN 4V INDICATIONS: LOW BACK PAIN TECHNIQUE: 5 views of the lumbar spine were acquired, including bilateral oblique views. COMPARISON: MRI lumbar spine 12/12/2022. FINDINGS: Bones: 5 nonrib-bearing vertebrae are present. There is normal bony alignment. No vertebral body compression fractures. No suspicious bony lesions. Disc height loss is worse at L5-S1. Facet arthropathy of the lower lumbar spine. Soft tissues: Overlying bowel gas pattern is normal. No suspicious soft tissue calcifications. Oblique images: No pars defects. 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 No pars defects are identified. Dictated by: Rick Pierre M.D. on 01/15/2023 at 10:06 Approved by: Rick Pierre M.D. on 01/15/2023 at 10:10
== END ==
PROVIDERS: PCP Registered Nurse; Referring Provider Anesthesiology; Visit Provider Anesthesiology
DX: M54.50 Low back pain, unspecified (principal); M47.816 Spondylosis without myelopathy or radiculopathy, lumbar region; M54.2 Cervicalgia; M54.6 Pain in thoracic spine; M79.604 Pain in right leg; M79.605 Pain in left leg; M79.601 Pain in right arm; M79.602 Pain in left arm; M25.551 Pain in right hip; M25.552 Pain in left hip
CPT/HCPCS: 72110; 99214